=== PATIENT | female | born 1985 | race African-American/Black ===

== ENCOUNTER 2019-02-15 09:06 | Emergency (ER) | payer SELFPAY ==
[~2019-02-15] VITALS: Ht 162.6 cm; Wt 95.5 kg
[~2019-02-15 09:06] MED LIST: ANTIDEPRESSANT; CEPHALEXIN500 M1 PO; HUMIRA40 MG/0.1; VIT D
[2019-02-15 09:19] VITALS: TEMP 97.7
[2019-02-15 09:38] LABS: COLLECTION METHOD CLEAN CATCH
[2019-02-15 09:46] LABS: PH 5 (5-8); URINE APPEARANCE Hazy; URINE BACTERIA Rare /hpf; URINE BILIRUBIN Negative (NEGATIVE); URINE BLOOD 2+ (NEGATIVE); URINE COLOR Yellow; URINE GLUCOSE Negative (NEGATIVE); URINE KETONE Trace (NEGATIVE); URINE LEUKOCYTE ESTERASE Negative (NEGATIVE); URINE NITRATE Negative (NEGATIVE); URINE PROTEIN(semi-quant) Negative (NEGATIVE); URINE RBC 0-2 /hpf; URINE UROBILINOGEN Negative (NEGATIVE)
[2019-02-15 11:11] LABS: BASO # 0.1 (0.0-0.2); BASO % 1.4 % (0.0-2.0); EOS # 0.1 (0.0-0.7); EOS % 1.2 % (0-4.0); GRAN # 3.1 (1.4-6.5); HEMATOCRIT 41.5 % (37.0-47.0); HEMOGLOBIN 13.9 g/dl (12.5-16.0); LYMPH # 1.3 (1.2-3.4); LYMPH % 25.3 % (20.0-51.0); MEAN CELL VOLUME 90 fl (80.0-100.0); MEAN CORPUSCULAR HEMOGLOBIN 30 pg (27.0-31.0); MEAN CORPUSCULAR HGB CONC 34 g/dl (33.0-37.0); MEAN PLATELET VOLUME 10.5 fl (7.4-10.4); MONO # 0.6 (0.1-0.6); MONO % 11.9 % (1.7-9.3); PLATELET COUNT 329 K/mm3 (130-400); RED BLOOD COUNT 4.62 M/mm3 (4.10-5.30); REDCELL DISTRIBUTION WIDTH-CV 14.3 % (11.5-14.5)
[2019-02-15 11:22] LABS: STREP SCREEN NEGATIVE
[2019-02-15 11:34] LABS: ALBUMIN 4.3 gm/dL (3.5-5.0); BILIRUBIN,TOTAL 0.5 mg/dL (0.0-1.0); C-REACTIVE PROTEIN 0.9 mg/dL (0.0-0.9); CALCIUM 8.9 mg/dL (8.4-10.2); CREATININE, serum 0.65 (0.52-1.25); POTASSIUM 4.2 mmol/L (3.4-5.0); TOTAL PROTEIN 8.1 gm/dL (6.4-8.2)
[2019-02-15] MEDS ORDERED: ZOFRAN ODT4 MG PO (12:18)
[2019-02-15 12:31] VITALS: BP 117/67; PULSE 68
[2019-02-16] MEDS ORDERED: AMOXICILLIN 50500 MG PO (16:03)
== END 2019-02-15 12:31 | disposition home or self-care (01) ==
LOC: COL.ER 09:06
PROVIDERS: Nurse Practitioner
DX: J06.9 Acute upper respiratory infection, unspecified (principal); R11.2 Nausea with vomiting, unspecified; M54.9 Dorsalgia, unspecified; F17.210 Nicotine dependence, cigarettes, uncomplicated; F32.9 Major depressive disorder, single episode, unspecified
CPT/HCPCS: J1885; J2405; J7030

== ENCOUNTER 2019-05-09 07:19 | Emergency (ER) | payer SELFPAY ==
[~2019-05-09] VITALS: Ht 162.6 cm; Wt 92.3 kg
[~2019-05-09 07:19] MED LIST changes: +AMOXICILLIN 50500 MG PO; +ZOFRAN ODT4 MG PO
[2019-05-09 07:28] VITALS: BP 159/101
[2019-05-09] MEDS ORDERED: BACTRIM DS 8001 TAB PO (08:29)
[2019-05-09 08:47] VITALS: PULSE 81; TEMP 97.7
== END 2019-05-09 08:47 | disposition home or self-care (01) ==
LOC: COL.ER 07:19
DX: L02.412 Cutaneous abscess of left axilla (principal); L02.411 Cutaneous abscess of right axilla; F17.210 Nicotine dependence, cigarettes, uncomplicated

== ENCOUNTER 2022-02-14 11:35 | Emergency (ER) | payer OTHER ==
[~2022-02-14] VITALS: Ht 165.1 cm; Wt 100.0 kg
[~2022-02-14 11:35] MED LIST changes: +BACTRIM DS 8001 TAB PO
[2022-02-14 13:08] VITALS: BP 153/96; PULSE 77; TEMP 98.1
== END 2022-02-14 13:08 | disposition home or self-care (01) ==
LOC: COL.ER 11:35
DX: S51.831A Puncture wound without foreign body of right forearm, initial encounter (principal); Z28.310 Unvaccinated for COVID-19; W45.0XXA Nail entering through skin, initial encounter; Y92.219 Unspecified school as the place of occurrence of the external cause

== ENCOUNTER 2024-01-31 22:51 | Inpatient (IN) | payer OTHER ==
[~2024-01-31] VITALS: Ht 165.1 cm; Wt 105.7 kg
[2024-01-31 23:25] LABS: BASO % 0.7 % (0.0-2.0); EOS % 0.2 % (0.0-4.0); GRAN # 2.8 K/mm3 (1.4-6.5); GRAN % 60.3 % (42.2-75.2); HEMOGLOBIN 11.9 g/dl (12.5-16.0); LYMPH # 1.2 K/mm3 (1.2-3.4); LYMPH % 27.2 % (20.0-51.0); MEAN CELL VOLUME 92 fl (80.0-100.0); MEAN CORPUSCULAR HEMOGLOBIN 30 pg (27-31); MEAN CORPUSCULAR HGB CONC 33 g/dl (33.0-37.0); MEAN PLATELET VOLUME 9.4 fl (7.4-10.4); MONO # 0.5 K/mm3 (0.1-0.6); MONO % 11.4 % (1.7-9.3); PLATELET COUNT 281 K/mm3 (130-400); RED BLOOD COUNT 3.93 M/mm3 (4.10-5.30); REDCELL DISTRIBUTION WIDTH-CV 19.5 % (11.5-14.5)
[2024-01-31 23:27] LABS: INR 1.2 (0.8-3.0); PROTHROMBIN TIME 13.4 SECONDS (9.7-12.8)
[2024-01-31 23:30] LABS: PARTIAL THROMBOPLASTIN TIME 31.4 SECONDS (26.0-37.0)
[2024-01-31 23:41] LABS: ALANINE AMINOTRANSFERASE 99 U/L (0-55); ALBUMIN 3.6 g/dL (3.5-5.0); ALKALINE PHOSPHATASE 124 U/L (40-150); ANION GAP 15 mmol/L (7-16); AST,SGOT 116 U/L (5-34); BILIRUBIN,TOTAL 0.6 mg/dL (0.2-1.2); BLOOD UREA NITROGEN 5 mg/dL (7-19); CALCIUM 8.6 mg/dL (8.4-10.2); CHLORIDE 106 mEq/L (98-107); CREATININE, serum 0.76 mg/dL (0.57-1.11); GLUCOSE 92 mg/dL (70-99); POTASSIUM 3.4 mEq/L (3.5-4.5); SODIUM 143 mEq/L (136-145); TOTAL PROTEIN 8.4 g/dl (6.2-8.1)
[2024-01-31 23:44] LABS: ALCOHOL(ethanol),MEDICAL 397 mg/dL (0-10)
[2024-01-31 23:47] LABS: TROPONIN-I < 0.010 ng/mL (0.00-0.033)
[2024-02-01] VITALS (18 sets, daily range): BP systolic 134–174; BP diastolic 78–128; PULSE 77–144; TEMP 98.1–98.9
[2024-02-01 00:23] LABS: COLLECTION METHOD CLEAN CATCH
[2024-02-01 00:37] LABS: URINE APPEARANCE CLEAR (CLEAR/HAZY); URINE BLOOD NEGATIVE (NEGATIVE); URINE COLOR YELLOW (YELLOW); URINE GLUCOSE NEGATIVE (NEGATIVE); URINE KETONE NEGATIVE (NEGATIVE); URINE NITRATE NEGATIVE (NEGATIVE); URINE PROTEIN(semi-quant) NEGATIVE (NEGATIVE)
[2024-02-01 00:52] LABS: TRICYCLIC ANTIDEPRESS URINE NEGATIVE (NEGATIVE)
[2024-02-01] MEDS ORDERED: NS 64 ML IV SCH (01:29)
[2024-02-01] MEDS ORDERED: Iohexol 350 - 100 ML VIAL IV ONE (01:29)
[2024-02-01] MEDS ORDERED: Ondansetron 4 MG/2 ML VIAL IV ONE (02:00)
[2024-02-01] MEDS ORDERED: Ondansetron 4 MG/2 ML VIAL IV PRN (04:00)
[2024-02-01] MEDS ORDERED: Mag/Al Hydrox/Simeth Susp 30 ML CUP PO PRN ×2 (04:00→11:30)
[2024-02-01] MEDS ORDERED: LORazepam 2 MG/ML 1 ML VIAL IM PRN (04:00)
[2024-02-01] MEDS ORDERED: Magnesium Sulfate 4% 50 ML IV ONE (04:00)
[2024-02-01] MEDS ORDERED: Acetaminophen 325 MG TAB PO PRN (04:00)
[2024-02-01] MEDS ORDERED: chlordiazePOXIDE 25 MG CAP PO PRN (04:00)
[2024-02-01] MEDS ORDERED: PROZAC 10MG10 MG (04:05)
[2024-02-01] MEDS ORDERED: NS 1,000 ML IV SCH (04:15)
[2024-02-01 05:15] LABS: BASO % 0.5 % (0.0-2.0); EOS % 0.7 % (0.0-4.0); GRAN # 2.1 K/mm3 (1.4-6.5); HEMOGLOBIN 11.4 g/dl (12.5-16.0); LYMPH # 1.3 K/mm3 (1.2-3.4); LYMPH % 31.1 % (20.0-51.0); MEAN CELL VOLUME 91 fl (80.0-100.0); MEAN CORPUSCULAR HEMOGLOBIN 31 pg (27-31); MEAN CORPUSCULAR HGB CONC 34 g/dl (33.0-37.0); MEAN PLATELET VOLUME 9.4 fl (7.4-10.4); MONO # 0.7 K/mm3 (0.1-0.6); MONO % 16.5 % (1.7-9.3); PLATELET COUNT 260 K/mm3 (130-400); RED BLOOD COUNT 3.72 M/mm3 (4.10-5.30); REDCELL DISTRIBUTION WIDTH-CV 19.7 % (11.5-14.5)
[2024-02-01 05:21] LABS: HEMATOCRIT 33.7 % (37.0-47.0)
[2024-02-01 05:36] LABS: ALANINE AMINOTRANSFERASE 90 U/L (0-55); ALBUMIN 3.3 g/dL (3.5-5.0); ALKALINE PHOSPHATASE 118 U/L (40-150); ANION GAP 16 mmol/L (7-16); AST,SGOT 98 U/L (5-34); BILIRUBIN,TOTAL 0.7 mg/dL (0.2-1.2); CALCIUM 8.2 mg/dL (8.4-10.2); CHLORIDE 106 mEq/L (98-107); CHOLESTEROL 228 mg/dL (0-199); CHOLESTEROL RISK RATIO 3.6; CREATININE, serum 0.73 mg/dL (0.57-1.11); GLUCOSE 86 mg/dL (70-99); HDL CHOLESTEROL 62 mg/dL (40-60); LDL CHOLESTEROL 149 mg/dL; MAGNESIUM 1.4 mg/dL (1.6-2.6); POTASSIUM 3.3 mEq/L (3.5-4.5); SODIUM 144 mEq/L (136-145); TOTAL PROTEIN 7.9 g/dl (6.2-8.1)
[2024-02-01 05:46] LABS: BLOOD UREA NITROGEN < 5 mg/dL (7-19)
[2024-02-01 05:56] LABS: THYROID STIMULATING HORMONE 1.641 uIU/mL (0.350-4.940)
[2024-02-01] MEDS ORDERED: Multivitamin TAB PO SCH (08:00)
[2024-02-01] MEDS ORDERED: Folic Acid 1 MG TAB PO SCH (09:00)
--- NOTE | 2024-02-01 10:44 | NUR ---
SW met with patient to complete initial assessment for discharge planning. Patient verified that she lives in [place] with her 16 year old daughter. Patient is retired and sees [facility] clinic for health care needs. She uses [facility] in [place] without difficulty. Patient lists her mother Heather as her contact ([phone]) and denies having a DPOA. Patient states that she uses only a CPAP at home. 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 She denies having been in inpt detox and states that she uses [facility] for alcohol treatment. Patient states her mother will drive her home at discharge. Discharge plan: Home
[2024-02-01] MEDS ORDERED: Clopidogrel 75 MG TAB PO SCH (12:07)
[2024-02-01] MEDS ORDERED: amLODIPine 10 MG TAB PO SCH (12:08)
[2024-02-01] MEDS ORDERED: Atorvastatin 40 MG TAB PO ONE (12:15)
[2024-02-01] MEDS ORDERED: hydrALAZINE 20 MG/ML 1 ML VIAL IV PRN ×2 (12:45→18:00)
[2024-02-01] MEDS ORDERED: Lisinopril 20 MG TAB PO SCH (15:57)
[2024-02-01] MEDS ORDERED: Potassium Bicarbonate/Citrate 20 MEQ Effervescent TAB PO SCH ×2 (16:00→19:00)
[2024-02-01] MEDS ORDERED: *Potassium Replacement Protocol MC SCH (16:00)
[2024-02-01] MEDS ORDERED: hydroCHLOROthiazide 25 MG TAB PO ONE (18:00)
--- NOTE | 2024-02-01 18:43 | NUR ---
Assessment completed this am. At time of assessment, patient began to vomit. Zofran administered IVP. CIWA order obtained- Ativan 2mg administered for a CIWA score of 17. Patient was still having nausea and vomitting- compazine order obtained-administered at 1255. Pt hypertensive- order obtained for Hydralazine 10mg prn- administered at 1255. Compazine was effective until patient began vomitting again at 1740- Compazine administered at 1751. Still hypertensive- new order obtained- HCTZ administered po at 1823. Hydralazine 20mg administered at 1829. Ativan administered at 1823 for CIWA of 14. Tele placed. Pt now in ST, sustaining in the 150 range. Denies SOA or chest pain. Has not been out of bed. No vomitting. K+ replaced- moved back time on last two doses and changed to Klor-Con since patient became nauseated and began vomitting again. Seizure precautions in place.
--- NOTE | 2024-02-01 19:04 | NUR ---
ANISA Ramirez notified of patient's HR 140-150 range. Librium 50mg administered. Blood pressure re-checked- now WNL- see flowsheet. Margot, RN- charge in ICU also made aware of patient's change of condition.
[2024-02-01] MEDS ORDERED: LORazepam 2 MG/ML 1 ML VIAL IV PRN (19:15)
[2024-02-02] VITALS (18 sets, daily range): BP systolic 116–173; BP diastolic 77–107; PULSE 112–138; TEMP 98.2–99.7
--- NOTE | 2024-02-02 05:30 | NUR ---
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 pt TACHYCARDIC THE WHOLE SHIFT WITH ELEVATED B/P's AND MEWS OF 4. HOSPITALIST CALLED. ALCOHOL DETOX PROTOCAL FOLLOWED AND PRN APRESOLINE GIVEN NEEDED. pt SCORED BETWEEN 6 AND 17 ON THE DETOX PROTOCAL. ATIVAN AND LIBRIUM GIVEN. WILL CONTINUE TO CLOSELY MONITOR pt. CALL LIGHT WITHIN REACH.
[2024-02-02] MEDS ORDERED: PROZAC40 MG PO (10:44)
--- NOTE | 2024-02-02 11:02 | NUR ---
Tylenol 650mg administered po for c/o headache. Rates headache 08/16. Assessment completed. Has not required prn medication intervention per [facility] protocol. Reports numbness and weakness to RLE but Neuro checks WNL. Blood pressure improved from yesterday but tele shows ST 120s. Denies chest pain or SOA.
--- NOTE | 2024-02-02 11:50 | NUR ---
Pt to MRI via w/c.
--- NOTE | 2024-02-02 12:28 | NUR ---
Pt returns to room from MRI.
--- NOTE | 2024-02-02 13:02 | NUR ---
Patient reports headache is resolved. Rate pain 0/10. Encouraged patient to perform oral care, which she did independently. Refuses bath but agrees to use bathing wips. Denies nausea. Encouraged patient to order lunch since she has had little intake since yesterday.
--- NOTE | 2024-02-02 19:00 | NUR ---
Report given to ANDREW Lino. Patient tolerated diet without c/o nausea or vomiting. Seizure and fall precautions in place.
[2024-02-02] MEDS ORDERED: Benzonatate 100 MG CAP PO SCH (22:30)
[2024-02-03] VITALS (12 sets, daily range): BP systolic 121–145; BP diastolic 78–100; PULSE 108–123; TEMP 98.5–99.3
--- NOTE | 2024-02-03 06:55 | NUR ---
awake resting in bed, bedside shift report received from ANDREW Lino
--- NOTE | 2024-02-03 08:22 | NUR ---
MEWAS score 3 and charge nurse notified, this patient is alert and oriented, skin warm and dry, has mild tremors felt
--- NOTE | 2024-02-03 08:30 | NUR ---
full assessment completed, see interventions for further info, only has minimal tremors to feel
[2024-02-03] MEDS ORDERED: Thiamine 100 MG TAB PO SCH (09:00)
--- NOTE | 2024-02-03 09:45 | NUR ---
radiology in to complete ultrasound
--- NOTE | 2024-02-03 10:56 | NUR ---
Initial visit attempts: Patient sleeping. Roentgenology Teacher left card offering Spiritual Care and a way to contact Roentgenology Teacher when she is feeling like talking or would like a prayer.
[2024-02-03] MEDS ORDERED: FOLIC ACID 11 MG/TA1 PO (11:47)
[2024-02-03] MEDS ORDERED: MULTI VITAMINS1 TAB PO (11:47)
[2024-02-03] MEDS ORDERED: NORVASC 10MG10 MG PO (11:47)
[2024-02-03] MEDS ORDERED: LIPITOR 40MG TA40 MG PO (11:47)
[2024-02-03] MEDS ORDERED: THIAMINE 1100 MG/TAB PO (11:47)
[2024-02-03] MEDS ORDERED: PRINIVIL20 MG PO (11:47)
[2024-02-03] MEDS ORDERED: ASPIRIN E.C. 8181 MG PO (11:47)
--- NOTE | 2024-02-03 12:40 | NUR ---
appears to be dozing, awakens easily and denies needs
--- NOTE | 2024-02-03 14:48 | NUR ---
tech in to complete echo
--- NOTE | 2024-02-03 16:50 | NUR ---
telemetry discontinued and INT, discharge instructions given to patient, verbalizes understanding,
--- NOTE | 2024-02-03 17:22 | NUR ---
up and about in room independently, awaiting transportation for going home
--- NOTE | 2024-02-03 18:18 | NUR ---
discharged ambulatory
[2024-02-03] MEDS ORDERED: Atorvastatin 40 MG TAB PO SCH (21:00)
== END 2024-02-03 18:18 | disposition home or self-care (01) | DRG 69 ==
LOC: COL.ER 22:51 → MEDICAL 02-01 03:24
PROVIDERS: Emergency Medicine; Physician Assistant; ADMIT Internal Medicine
DX: G45.9 Transient cerebral ischemic attack, unspecified (principal); F10.20 Alcohol dependence, uncomplicated; R00.0 Tachycardia, unspecified; D64.9 Anemia, unspecified; I10 Essential (primary) hypertension
CPT/HCPCS: OP; G0378; J0360; J0780; J1650; J2060; J2405; J3411; J3475; J7030; Q3014; Q9967